=== PATIENT | female | born 1960 | race Two or more races ===

== ENCOUNTER 2020-03-03 07:33 | Emergency (ER) | payer OTHER ==
[~2020-03-03] VITALS: Ht 162.6 cm; Wt 89.8 kg
[2020-03-03 07:45] VITALS: BP 133/78
[2020-03-03] MEDS ORDERED: ACETAMINOPHEN/CODEINE#3 (300/30mg) TAB PO ONE (08:30)
== END 2020-03-03 08:51 | disposition home or self-care (01) ==
LOC: ER 07:33
DX: S62.617A Displaced fracture of proximal phalanx of left little finger, initial encounter for closed fracture (principal); E11.9 Type 2 diabetes mellitus without complications; E07.9 Disorder of thyroid, unspecified; W19.XXXA Unspecified fall, initial encounter; Y93.89 Activity, other specified; Y92.89 Other specified places as the place of occurrence of the external cause; Y99.8 Other external cause status
CPT/HCPCS: 29125; 73130